=== PATIENT | male | born 1950 | race Caucasian/White ===

== ENCOUNTER 2016-12-02 22:27 | Emergency (ER) | payer OTHER, MEDICAID ==
[2016-12-02 23:52] VITALS: BP 148/94
== END 2016-12-02 23:52 | disposition home or self-care (01) ==
LOC: ED 22:27
DX: S83.91XA Sprain of unspecified site of right knee, initial encounter (principal); S53.401A Unspecified sprain of right elbow, initial encounter; I10 Essential (primary) hypertension; Z86.79 Personal history of other diseases of the circulatory system; W18.09XA Striking against other object with subsequent fall, initial encounter; Y93.89 Activity, other specified; Y99.8 Other external cause status; Y92.89 Other specified places as the place of occurrence of the external cause

== ENCOUNTER 2017-03-28 16:22 | Inpatient (IN) | payer OTHER ==
[~2017-03-28] VITALS: Ht 180.3 cm; Wt 127.0 kg
[2017-03-28 17:58] LABS: BASOPHIL % 1.8 % (0-2); RED CELL DISTRIBUTION WIDTH 13.5 % (11.5-14.5)
[2017-03-28 18:05] LABS: CALCIUM 8.3 mg/dL (8.5-10.1); CARBON DIOXIDE 28.6 mmol/L (21-32); CHLORIDE SERUM 101 mmol/L (98-107); CREATININE SERUM 0.9 mg/dL (0.7-1.3); GFR1 > 60 mL/min; GLUCOSE SERUM 90 mg/dL (74-106); POTASSIUM SERUM 3.6 mmol/L (3.5-5.1); SODIUM SERUM 138 mmol/L (136-145)
[2017-03-28 18:08] LABS: PLATELET COUNT 99 x10^3mcL (130-400)
[2017-03-28 18:18] LABS: ALKALINE PHOSPHATASE 72 U/L (46-116); ALT/SGPT 24 U/L (16-63); AST/SGOT 39 U/L (15-37); BILIRUBIN TOTAL 0.67 mg/dL (0.20-1.00); FREE T4 1.27 ng/dL (0.76-1.46); TOTAL PROTEIN, SERUM 7.1 g/dL (6.4-8.2)
[2017-03-28 18:20] LABS: ALBUMIN 3.2 g/dL (3.4-5.0)
[2017-03-28 18:43] LABS: UA SPECIFIC GRAVITY 1.025 (1.005-1.035); microscopic required? YES; urine erythrocyte 3+ (NEGATIVE)
[2017-03-28 20:27] LABS: CHOLESTEROL/HDL RATIO 2.8; FREE T4 1.25 ng/dL (0.76-1.46); FREE THYROXINE INDEX 2.3 ug/dL (1.4-4.5); MAGNESIUM 2.2 mg/dL (1.8-2.4); PHOSPHOROUS 2.7 mg/dL (2.5-4.9)
[2017-03-28 20:51] VITALS: BP 141/107
[2017-03-28 20:54] VITALS: Ht 180.3 cm; Wt 127.0 kg
[2017-03-28 21:22] VITALS: BP 144/108
[2017-03-28 22:12] LABS: T3 TOTAL 0.86 ng/mL
[2017-03-28 22:22] VITALS: BP 144/108
[2017-03-29] MEDS ORDERED: XARELTO20 M1 PO (01:02)
[2017-03-29 05:49] VITALS: BP 146/99
[2017-03-29 06:36] LABS: CALCIUM 7.5 mg/dL (8.5-10.1); CARBON DIOXIDE 27.2 mmol/L (21-32); CHLORIDE SERUM 104 mmol/L (98-107); CREATININE SERUM 0.7 mg/dL (0.7-1.3); GFR1 > 60 mL/min; GLUCOSE SERUM 83 mg/dL (74-106); MAGNESIUM 1.9 mg/dL (1.8-2.4); PHOSPHOROUS 2.7 mg/dL (2.5-4.9); POTASSIUM SERUM 3.2 mmol/L (3.5-5.1); SODIUM SERUM 139 mmol/L (136-145)
[2017-03-29 06:41] LABS: RED CELL DISTRIBUTION WIDTH 13.9 % (11.5-14.5)
[2017-03-29 06:42] LABS: PLATELET COUNT 94 x10^3mcL (130-400)
[2017-03-29 09:32] VITALS: BP 140/92
[2017-03-29 11:12] LABS: BAND NEUTROPHIL 8 % (0-10); BASOPHIL 0 % (0-2); MONOCYTE 10 % (0-7); PLATELET MORPHOLOGY PLATELETS DECREASED; SEGMENTED NEUTROPHILS 61 % (37-75)
[2017-03-29 13:25] VITALS: BP 137/77
[2017-03-29 13:30] VITALS: BP 137/77
[2017-03-29 17:27] VITALS: BP 136/81
[2017-03-29 21:57] VITALS: BP 139/98
[2017-03-30 06:01] VITALS: BP 143/108
[2017-03-30 07:15] LABS: CALCIUM 8.1 mg/dL (8.5-10.1); CARBON DIOXIDE 29.8 mmol/L (21-32); CHLORIDE SERUM 103 mmol/L (98-107); CREATININE SERUM 0.8 mg/dL (0.7-1.3); GFR1 > 60 mL/min; GLUCOSE SERUM 93 mg/dL (74-106); POTASSIUM SERUM 3.9 mmol/L (3.5-5.1); SODIUM SERUM 140 mmol/L (136-145)
[2017-03-30 07:22] LABS: BASOPHIL % 1.3 % (0-2); RED CELL DISTRIBUTION WIDTH 13.9 % (11.5-14.5)
[2017-03-30 07:25] LABS: PLATELET COUNT 102 x10^3mcL (130-400)
[2017-03-30 10:02] VITALS: BP 1308/92
[2017-03-30] MEDS ORDERED: CLEOCIN HCL300 MG PO ×3 (12:33→13:29)
[2017-03-30] MEDS ORDERED: LEVAQUIN750 MG PO ×2 (12:33→12:34)
[2017-03-30] MEDS ORDERED: TAM75 PO ×3 (12:33→13:29)
[2017-03-30] MEDS ORDERED: LAC PO (12:34)
[2017-03-30 15:07] VITALS: BP 147/100
[2017-03-30 16:30] VITALS: BP 147/100
== END 2017-03-30 17:05 | disposition home or self-care (01) | DRG 871 ==
LOC: ED 16:22 → DU 18:49
PROVIDERS: Emergency Medicine; Family Medicine
DX: A41.9 Sepsis, unspecified organism (principal); J69.0 Pneumonitis due to inhalation of food and vomit; N17.0 Acute kidney failure with tubular necrosis; R65.20 Severe sepsis without septic shock; J09.X2 Influenza due to identified novel influenza A virus with other respiratory manifestations; I48.91 Unspecified atrial fibrillation; D69.6 Thrombocytopenia, unspecified; I10 Essential (primary) hypertension; R31.9 Hematuria, unspecified; E02 Subclinical iodine-deficiency hypothyroidism; Z68.39 Body mass index [BMI] 39.0-39.9, adult; Z86.73 Personal history of transient ischemic attack (TIA), and cerebral infarction without residual deficits
CPT/HCPCS: 83880; 84439; 87804; 90658; J1956; J3490; J7030; J7620; Q0092